=== PATIENT | male | born 1960 | race Caucasian/White ===

== ENCOUNTER 2017-03-03 20:22 | Emergency (ER) | payer MEDICAID ==
[~2017-03-03] VITALS: Ht 182.9 cm; Wt 103.1 kg
[~2017-03-03 20:22] MED LIST: ACYC-113 PO; ACYC-57 PO; FURO-93 PO; ONDA4TAB7 PO
[2017-03-03 22:15] VITALS: BP 115/82
== END 2017-03-03 23:54 | disposition home or self-care (01) ==
LOC: ED 23:52
DX: R30.0 Dysuria (principal); M79.604 Pain in right leg; M79.605 Pain in left leg; F17.200 Nicotine dependence, unspecified, uncomplicated
CPT/HCPCS: 81003; 93970

== ENCOUNTER 2017-05-30 13:21 | Emergency (ER) | payer MEDICAID ==
[~2017-05-30] VITALS: Ht 182.9 cm; Wt 104.0 kg
[2017-05-30 13:23] VITALS: BP 129/79
[2017-05-30 14:03] LABS: HEMOGLOBIN 15.4 g/dL (13.7-18.0); WHITE BLOOD COUNT 7.9 x10^3/uL (3.4-10)
[2017-05-30 14:15] LABS: ASPARTATE AMINO TRANSFERASE 24 U/L (15-37); BLOOD UREA NITROGEN 13 mg/dL (7-18)
[2017-05-30] MEDS ORDERED: MAALOX/HYOSCYAMINE/LIDOCAINE 45 ML BTL ONE (15:18)
== END 2017-05-30 15:32 | disposition home or self-care (01) ==
LOC: ED 14:38
DX: G89.29 Other chronic pain (principal); R10.84 Generalized abdominal pain
CPT/HCPCS: 36415; 74022; 80053; 81003; 83690; 85025; 99285

== ENCOUNTER 2017-09-24 10:27 | Emergency (ER) | payer MEDICAID ==
[~2017-09-24] VITALS: Ht 182.9 cm; Wt 103.5 kg
[2017-09-24 10:30] VITALS: BP 119/73
== END 2017-09-24 11:20 | disposition home or self-care (01) ==
LOC: ED 11:14
DX: B34.9 Viral infection, unspecified (principal); F17.200 Nicotine dependence, unspecified, uncomplicated
CPT/HCPCS: 99283

== ENCOUNTER 2018-05-16 14:40 | Emergency (ER) | payer MEDICAID ==
[~2018-05-16] VITALS: Ht 182.9 cm; Wt 103.1 kg
[2018-05-16 14:56] VITALS: BP 118/74
== END 2018-05-16 15:23 ==
LOC: ED 15:17
DX: B35.3 Tinea pedis (principal); F17.200 Nicotine dependence, unspecified, uncomplicated
CPT/HCPCS: 99283

== ENCOUNTER 2018-09-12 18:49 | Emergency (ER) | payer MEDICAID ==
[~2018-09-12] VITALS: Ht 182.9 cm; Wt 103.1 kg
[2018-09-12 18:51] VITALS: BP 146/85
[2018-09-12] MEDS ORDERED: KETOROLAC 30 MG/1 ML ONE (19:56)
[2018-09-12] MEDS ORDERED: KETOROLAC 30 MG/1 ML IM ONE (20:00)
== END 2018-09-12 20:13 | disposition home or self-care (01) ==
LOC: ED 19:49
DX: M75.91 Shoulder lesion, unspecified, right shoulder (principal); Z76.0 Encounter for issue of repeat prescription; F17.200 Nicotine dependence, unspecified, uncomplicated
CPT/HCPCS: 73030; 73080; 96372; 99283; J1885

== ENCOUNTER 2019-08-28 12:31 | Emergency (ER) | payer MEDICAID ==
[~2019-08-28] VITALS: Ht 182.9 cm; Wt 104.9 kg
--- NOTE | 2019-08-28 12:43 | NUR ---
NA X1
--- NOTE | 2019-08-28 13:15 | NUR ---
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
--- NOTE | 2019-08-28 13:24 | NUR ---
Assumed care of pt. Pt ambulatory to ED from home. c/o greenlandic corey stuck in throat. was eating fries last night. made himself throw up 3 times this morning and couldn't get it unstuck. also had diarrhea 4 times this morning. no nausea at any point. Dr. Rouse at bedside for eval. Plan for esophagram. 07/05 throat pain. lungs cta. no upper airway wheezing heard. 96% RA. c/o diff some diff breathing. speaking in full sentences. occasional cough.
--- NOTE | 2019-08-28 13:40 | NUR ---
vss. waiting for rad.
--- NOTE | 2019-08-28 13:43 | NUR ---
pt to rad.
--- NOTE | 2019-08-28 14:02 | NUR ---
pt back from rad. no change in condition. NAD.
[2019-08-28 14:18] VITALS: BP 137/86
== END 2019-08-28 14:31 | disposition home or self-care (01) ==
LOC: ED 14:20
DX: T18.128A Food in esophagus causing other injury, initial encounter (principal); K52.9 Noninfective gastroenteritis and colitis, unspecified; F17.200 Nicotine dependence, unspecified, uncomplicated; X58.XXXA Exposure to other specified factors, initial encounter; Y93.89 Activity, other specified; Y92.89 Other specified places as the place of occurrence of the external cause; Y99.8 Other external cause status
CPT/HCPCS: 74220; 99283

== ENCOUNTER 2019-12-01 15:24 | Emergency (ER) | payer MEDICAID ==
[~2019-12-01] VITALS: Ht 182.9 cm; Wt 107.0 kg
[2019-12-01 15:28] VITALS: BP 129/73
--- NOTE | 2019-12-01 16:00 | NUR ---
BREAK RN: PT TO ROOM AT THIS TIME. PT ASKED TO CHANGE INTO GOWN, EVERYTHING OFF BUT UNDERGARMENTS. PT ARGUING WITH THIS RN. STATING "HE TOLD ME JUST SHIRT. HE'S RIGHT." THIS RN EXPLAINED THAT OUR EDMD'S DO A FULL ASSESSMENT AND PREFER PANTS OFF WELL. PT STATES "JUST THE SHIRT." NADN. BEDSIDE.
--- NOTE | 2019-12-01 16:12 | NUR ---
TASK RN: 59 Y/O MALE PRESENTS TO ED WITH C/O CP. PER PT "I HAVE SOME SHARP PAIN RIGHT HERE (PT POINTS TO EPIGASTRIC AREA) FOR A WHILE. I ATE SOME IBANEZ'S ABOUT 1030 AND THIS PAIN STARTED ABOUT 1330. IT HASN'T GONE AWAY." PT BEDSIDE. ANTWAN.
--- NOTE | 2019-12-01 16:16 | NUR ---
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
--- NOTE | 2019-12-01 16:21 | NUR ---
TASK RN: BEDSIDE REOPRT TO [facility].
[2019-12-01] MEDS ORDERED: MAALOX/HYOSCYAMINE/LIDOCAINE 45 ML BTL ONE (16:24)
[2019-12-01] MEDS ORDERED: MAALOX/HYOSCYAMINE/LIDOCAINE 45 ML BTL PO ONE (16:30)
[2019-12-01 16:39] LABS: BASOPHILS # (AUTO) 0.09 x10^3/uL (0-0.1); BASOPHILS % (AUTO) 1 % (0-1); EOSINOPHILS # (AUTO) 0.32 x10^3/uL (0-0.4); EOSINOPHILS % (AUTO) 4 % (1-7); LYMPHOCYTES # (AUTO) 2.08 x10^3/uL (1-3.4); LYMPHOCYTES % (AUTO) 26 % (22-44); MD NO; MEAN CORPUSCULAR HEMOGLOBIN 29.6 pg (27.5-34.5); MEAN CORPUSCULAR HGB CONC 33.6 g/dL (33.2-36.2); MEAN CORPUSCULAR VOLUME 87.9 fL (81-97); MEAN PLATELET VOLUME 7.6 fL (7.4-10.4); MONOCYTES # (AUTO) 0.65 x10^3/uL (0.2-0.8); MONOCYTES % (AUTO) 8 % (2-9); NEUTROPHILS # (AUTO) 4.95 x10^3/uL (1.8-6.8); NEUTROPHILS % (AUTO) 61 % (42-75); PLATELET COUNT 243 x10^3/uL (130-400); RED BLOOD COUNT 5.01 x10^6/uL (4.38-5.82)
--- NOTE | 2019-12-01 16:45 | NUR ---
PT REQUESTING TO GO OUT TO CAR TO CHECK ON HIS DOG. PT IS EDUCATED ON HOSPITAL POLICY. PT THEN PROCEEDS TO ASK THIS RN TO ESCORT HIM TO THE CAR. PT EDUCATED THAT THAT IS NOT A POSSIBILITY AND IF HE CHOSES TO LEAVE HE WOULD AGAINST MEDICAL ADVISE. PT THEN INQUIRES ON HOW LONG THIS WHILE TAKE. PT ASSURED THAT WE ARE WORKING FAST POSSIBLE. PT AT THIS TIME FOLLOWS THIS RN INTO THE [facility] AND ASKS FOR A SODA. PT REDIRECTED INTO ROOM.
[2019-12-01 16:49] LABS: ALANINE AMINOTRANSFERASE 60 U/L (12-78); ALBUMIN 3.4 g/dL (3.4-5.0); ANION GAP 6 mmol/L (5-15); CALCIUM 8.9 mg/dL (8.5-10.1); CHLORIDE 106 mmol/L (98-107); CREATININE 1.12 mg/dL (0.7-1.3)
--- NOTE | 2019-12-01 16:52 | NUR ---
PT CONTINUOSLY REDIRECTED BACK TO ROOM. PT AGAIN ASKING FOR SOMETHING TO EAT AND DRINK. PT REDIRECTED BACK TO PREVIOUS CONVERSATION AND ENCOURAGED TO RETURN TO THE ROOM.
[2019-12-01 16:53] LABS: ALKALINE PHOSPHATASE 99 U/L (45-117); BILIRUBIN,TOTAL 0.6 mg/dL (0.2-1.0); TOTAL PROTEIN 6.9 g/dL (6.4-8.2); TROPONIN I < 0.015 ng/mL (0.000-0.045)
== END 2019-12-01 17:35 | disposition home or self-care (01) ==
LOC: ED 16:12
DX: R07.89 Other chest pain (principal)
CPT/HCPCS: 36415; 71046; 80053; 83690; 83880; 84484; 85025; 93005; 99285

== ENCOUNTER 2020-12-13 11:50 | Emergency (ER) | payer MEDICAID ==
[~2020-12-13] VITALS: Ht 182.9 cm; Wt 112.5 kg
[2020-12-13 11:53] VITALS: BP 144/87
--- NOTE | 2020-12-13 11:57 | NUR ---
triage: patient arrives with dental pain in front left top tooth that began 4 months ago. reports no healthcare/dental visits because, 'its just to expensive".
[2020-12-13] MEDS ORDERED: IBUPROFEN 800 MG TABLET ONE (12:18)
[2020-12-13] MEDS ORDERED: IBUPROFEN 800 MG TABLET PO ONE (12:30)
--- NOTE | 2020-12-13 12:51 | NUR ---
Patient given discharge instructions and they have confirmed that they understand the instructions. Patient ambulatory with steady gait.
== END 2020-12-13 12:53 | disposition home or self-care (01) ==
LOC: ED 12:25
DX: K08.89 Other specified disorders of teeth and supporting structures (principal)
CPT/HCPCS: 99283